=== PATIENT | male | born 1980 | race Caucasian/White ===

== ENCOUNTER 2017-06-12 16:24 | Emergency (ER) | payer OTHER ==
[~2017-06-12] VITALS: Ht 27.9 cm; Wt 88.5 kg
[~2017-06-12 16:24] MED LIST: ACYC-50 PO; ADV100/50 INH; ALB0.5 INH; ALBUDR INH; ALE10 PO; ALLO100T70 PO; CIPRO; FAM20 PO; FLUT1DIS27 IH; LISI20TA29 PO; MONT10TA22 PO; PAN40 PO; PHEN-710 PO; PRO-AIR IH; PRO25 PO; VITA1CAP48 PO; [UNRECOGNIZED DRUG - OTHER]
[2017-06-12] MEDS ORDERED: FLUT1BLS3 PO (16:40)
[2017-06-12] MEDS ORDERED: ALBU8.5H IH (16:41)
--- NOTE | 2017-06-12 16:52 | ER Report ---
History and Physical Time Seen By MD: 16:47 Hx. of Stated Complaint: PT WAS LIFTING HEAVY PILLARS AND HAD A PERIOD OF NUMBNESS, NOT BEING ABLE TO SPEAK FOR ABOUT HALF AN HOUR. PT HAS NAUSEA AND A SHARP SUBSTERNAL PAIN. HPI/ROS CHIEF COMPLAINT: Confusion HISTORY OF PRESENT ILLNESS: This is a 36-year-old male who presents to the emergency department for confusion. 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 Perhaps some epigastric discomfort. He said that this episode lasted about 30 minutes he also had some tingling to his fingers and toes, now he is has slight tingling in his left fingers. Patient also states that he did have some nausea during this episode, he is not able to vomit due to pyloric sphincter surgery, the nausea has since then resolved. Patient has no other complaints at this time no vomiting, diaphoresis, no chest pain, no headaches, no visual changes no shortness of breath. REVIEW OF SYSTEMS: Constitutional: No fever, no chills. Eyes: No discharge. ENT: No sore throat. Cardiovascular: No chest pain, no palpitations. Respiratory: No cough, no shortness of breath. Gastrointestinal: No abdominal pain, no vomiting. Genitourinary: No hematuria. Musculoskeletal: No back pain. Skin: No rashes. Neurological: As above. Allergies: Coded Allergies: Penicillins (Verified Allergy, Mild, 06/12/17) Home Meds Reported Medications Albuterol Sulfate 90 Mcg/Act (PROAIR HFA 90 MCG/ACT) 8.5 Gm Hfa.aer.ad, 1-2 PUFF IH 3-4XD, INHALER 06/12/17 Fluticasone/Vilanterol (Breo Ellipta 200-25 Mcg INH) 1 Each Blst.w.dev, 1 PUFF PO QDAY 06/12/17 Allopurinol (ALLOPURINOL) 100 Mg Tablet, 100 MG PO QDAY, #10 TAB TAKE 1 TABLET BY MOUTH EVERY DAY 07/09/14 Lisinopril (LISINOPRIL) 20 Mg Tablet, 20 MG PO QDAY, TAB 07/09/14 Vitamins A And D (Vitamin A And D) 1 Cap Capsule, 1 CAP PO 08/13/07 Acyclovir (Zovirax) 400 Mg Tablet, 400 MG PO BID 1 02/05/07 Discontinued Reported Medications Fluticasone/Salmeterol (Advair 100/50 Diskus) 1 Disk W/Dev Disk.w.dev, 1 DISK IH 08/13/07 Albuterol Sulfate (Albuterol Inh Conc) 2.5 Mg/0.5 Ml Nebu, 0 INH ONCE DILUTE BEFORE USING 08/13/07 Albuterol Sulfate (Albuterol Sulfate) 2.5 Mg/3 Ml Nebu, 2.5 MG INH BID 02/05/07 Past Medical/Surgical History Patient has a past medical and surgical history of hypertension, sinus problems , tonsillectomy, asthma, surgery as a child for pyloric stenosis, gout, right knee surgery at age 18, right hand surgery, 7 abdominal surgeries when he was 4 months old. Reviewed Nurses Notes: Yes Hx Smoking: No Constitutional Vital Sign - Last 24 Hours 06/12/17 06/12/17 06/12/17 06/12/17 16:35 16:36 16:39 16:54 Temp 97.6 Pulse 84 84 97 Resp 16 17 B/P (MAP) 137/97 (110) 137/97 Pulse Ox 92 94 O2 Delivery Room Air 06/12/17 06/12/17 06/12/17 06/12/17 17:00 17:09 17:24 17:25 Pulse 87 86 Resp 14 9 B/P (MAP) 147/96 (113) 132/86 (101) 119/84 (96) Pulse Ox 94 91 06/12/17 06/12/17 06/12/17 06/12/17 17:30 17:39 17:44 18:00 Pulse 96 ??? Resp 27 B/P (MAP) 134/89 (104) ???/??? (1665) Pulse Ox 91 06/12/17 06/12/17 06/12/17 06/12/17 18:14 18:28 18:30 18:44 Pulse ??? 77 Resp 24 B/P (MAP) 133/92 (106) 138/92 (107) Pulse Ox 93 06/12/17 06/12/17 06/12/17 06/12/17 19:30 19:35 20:00 20:05 Pulse 80 69 Resp 9 10 B/P (MAP) 126/88 (101) 131/91 (104) Pulse Ox 94 94 06/12/17 06/12/17 06/12/17 06/12/17 20:10 20:30 20:40 20:45 Pulse 75 77 Resp 11 10 8 B/P (MAP) 145/96 (112) Pulse Ox 94 94 92 Physical Exam General Appearance: The patient is alert, has no immediate need for airway protection and no signs of toxicity. Eyes: Pupils equal and round no pallor or injection. EOMs intact. ENT, Mouth: Mucous membranes are moist. Respiratory: There are no retractions, lungs are clear to auscultation. Cardiovascular: Regular rate and rhythm, no murmurs, clicks or rubs. No bruits Gastrointestinal: Abdomen is soft and non tender, no masses, bowel sounds normal, no bruits. Neurological: Alert and oriented 4. Moving all extremities. Following all commands. No focal neuro deficits. Cranial nerves II through XII intact, and symmetrical. Skin: Warm and dry, no rashes. Musculoskeletal: Neck is supple non tender. Extremities are nontender, nonswollen and have full range of motion. DIFFERENTIAL DIAGNOSIS: After history and physical exam differential diagnosis was considered for dizziness including but not limited to peripheral and central causes of vertigo, orthostatic causes including dehydration, and blood loss, thoracic aneurysm, aortic aneurysm, TIA, CVA. NIH Stroke Scale: 0 Level of consciousness:0 Alert Answers both questions correctly Performs both tasks correctly Best Gaze:0 Normal Visual:0 No visual loss Facial Palsy:0 Normal, symmetrical movements Motor Left Arm:0 No drift for 10 seconds Motor Right Arm:0 No drift for 10 seconds Motor Left Le No drift for 5 seconds Motor Right Le No drift for 5 seconds Limb Ataxia:0 Absent Sensory: 0 Normal, no sensory loss Best Language: 0 Normal, no aphasia Dysarthria:0 Normal Extinction and Inattention:0 No abnormality Medical Decision Making Data Points Result Diagram: 06/12/17 1745 06/12/17 1745 Laboratory Hematology Test 06/12/17 17:45 Red Blood Count 5.59 M/uL (4.00-5.60) Mean Corpuscular Volume 86.7 fL (80.0-96.0) Mean Corpuscular Hemoglobin 30.5 pg (26.0-33.0) Mean Corpuscular Hemoglobin Concent 35.1 g/dL (32.0-36.0) Red Cell Distribution Width 12.6 % (11.5-14.5) Mean Platelet Volume 7.9 fL (7.2-11.1) Neutrophils (%) (Auto) 86.3 % (39.4-72.5) Lymphocytes (%) (Auto) 8.2 % (17.6-49.6) Monocytes (%) (Auto) 5.0 % (4.1-12.4) Eosinophils (%) (Auto) 0.3 % (0.4-6.7) Basophils (%) (Auto) 0.2 % (0.3-1.4) Nucleated RBC Relative Count (auto) 0.1 /100WBC Neutrophils # (Auto) 13.9 K/uL (2.0-7.4) Lymphocytes # (Auto) 1.3 K/uL (1.3-3.6) Monocytes # (Auto) 0.8 K/uL (0.3-1.0) Eosinophils # (Auto) 0.0 K/uL (0.0-0.5) Basophils # (Auto) 0.0 K/uL (0.0-0.1) Nucleated RBC Absolute Count (auto) 0.01 K/uL D-Dimer Quantitative (PE/DVT) < 0.27 ug/ml (0-0.50) Sodium Level 139 mmol/L (137-145) Potassium Level 4.0 mmol/L (3.5-5.0) Chloride Level 102 mmol/L (98-107) Carbon Dioxide Level 22 mmol/L (22-30) Blood Urea Nitrogen 16 mg/dl (9-21) Creatinine 1.00 mg/dl (0.66-1.25) Glomerular Filtration Rate Calc > 60.0 Random Glucose 104 mg/dl (75-110) Calcium Level 9.8 mg/dl (8.4-10.2) Total Bilirubin 1.1 mg/dl (0.2-1.3) Aspartate Amino Transf (AST/SGOT) 48 U/L (0-35) Alanine Aminotransferase (ALT/SGPT) 53 U/L (0-56) Alkaline Phosphatase 95 U/L (0-126) Troponin I < 0.012 ng/ml Total Protein 7.7 gm/dl (6.3-8.2) Albumin 4.8 g/dl (3.5-5.0) Chemistry Test 06/12/17 17:45 White Blood Count 16.1 k/uL (4.5-11.0) Red Blood Count 5.59 M/uL (4.00-5.60) Hemoglobin 17.0 g/dL (14.0-18.0) Hematocrit 48.5 % (42.0-52.0) Mean Corpuscular Volume 86.7 fL (80.0-96.0) Mean Corpuscular Hemoglobin 30.5 pg (26.0-33.0) Mean Corpuscular Hemoglobin Concent 35.1 g/dL (32.0-36.0) Red Cell Distribution Width 12.6 % (11.5-14.5) Platelet Count 283 K/uL (150-450) Mean Platelet Volume 7.9 fL (7.2-11.1) Neutrophils (%) (Auto) 86.3 % (39.4-72.5) Lymphocytes (%) (Auto) 8.2 % (17.6-49.6) Monocytes (%) (Auto) 5.0 % (4.1-12.4) Eosinophils (%) (Auto) 0.3 % (0.4-6.7) Basophils (%) (Auto) 0.2 % (0.3-1.4) Nucleated RBC Relative Count (auto) 0.1 /100WBC Neutrophils # (Auto) 13.9 K/uL (2.0-7.4) Lymphocytes # (Auto) 1.3 K/uL (1.3-3.6) Monocytes # (Auto) 0.8 K/uL (0.3-1.0) Eosinophils # (Auto) 0.0 K/uL (0.0-0.5) Basophils # (Auto) 0.0 K/uL (0.0-0.1) Nucleated RBC Absolute Count (auto) 0.01 K/uL D-Dimer Quantitative (PE/DVT) < 0.27 ug/ml (0-0.50) Glomerular Filtration Rate Calc > 60.0 Calcium Level 9.8 mg/dl (8.4-10.2) Total Bilirubin 1.1 mg/dl (0.2-1.3) Aspartate Amino Transf (AST/SGOT) 48 U/L (0-35) Alanine Aminotransferase (ALT/SGPT) 53 U/L (0-56) Alkaline Phosphatase 95 U/L (0-126) Troponin I < 0.012 ng/ml Total Protein 7.7 gm/dl (6.3-8.2) Albumin 4.8 g/dl (3.5-5.0) Coagulation Test 06/12/17 17:45 D-Dimer Quantitative (PE/DVT) < 0.27 ug/ml EKG/Imaging EKG Interpretation 12 lead EKG: Rhythm: Normal sinus rhythm, 86 bpm. [place]: normal QRS: normal ST segments: No ST-T elevation or depression. No previous EKGs to compare to. Imaging PATIENT NAME: John Mcmahon : 1980 MR: [id number] V: [id number] EXAM DATE: [id number] ORDERING PHYSICIAN: FRANCIE NGUYEN TECHNOLOGIST: Location: [facility] - [place] Patient: John Mcmahon : 1980 Visit/Account:[id number] Date of Sevice: 06/12/2017 CT angiogram chest with contrast Indication: Confusion this morning, tingling in hands. Comparison: X-ray examination thoracic spine September 2014 Technique: Axial CT images are obtained through the chest after administration of 88 mL Isovue 370 IV contrast. Reformatted coronal and sagittal images were reviewed as well as coronal MIP images. One of the following dose optimization techniques was utilized in the performance of this exam: Automated exposure control; adjustment of the mA and/or kV according to the patient's size; or use of an iterative reconstruction technique. Specific details can be referenced in the facility's radiology CT exam operational policy. FINDINGS: Heart has a normal size and morphology. No evidence of pericardial effusion. There is a normal-appearing thoracic aorta and arch vessels. No evidence of dissection, intramural hematoma, aneurysm or other vascular abnormality. No evidence of periaortic or perivascular inflammatory change. Although not optimally timed, pulmonary arteries have a normal appearance. Pulmonary parenchyma is normal without infiltrate, consolidation, effusion, pneumothorax or underlying parenchymal disease. No debris is noted within the tracheobronchial system. Soft tissue windows reveal symmetric inferior portion of the thyroid. No evidence of adenopathy. Bony structures are unremarkable. Limited view of the upper abdomen is normal. Patient is status post Daniela procedure. IMPRESSION: 1. Unremarkable CT angiography of the chest without evidence of pathology. Report Dictated By: Juan Antonio Zelaya MD at 06/12/2017 7:34 PM Report E-Signed By: Juan Antonio Zelaya MD at 06/12/2017 7:42 PM [id number] PATIENT NAME: John Mcmahon : 1980 MR: [id number] V: [id number] EXAM DATE: ORDERING PHYSICIAN: FRANCIE NGUYEN TECHNOLOGIST: Location: [facility] [place] Patient: John Mcmahon : 1980 Visit/Account:[id number] Date of Sevice: 06/12/2017 CT Head without contrast Indication: Confusion. Comparison: None available Technique: Axial CT images were obtained through the brain from the skull base to the vertex without administration of IV contrast. Reformatted coronal and sagittal images were also obtained. One of the following dose optimization techniques was utilized in the performance of this exam: automated exposure control; adjustment of the mA and/ or kV according to the patient's size; or use of an iterative reconstruction technique. Specific details can be referenced in the facility's radiology CT exam operational policy. Findings: No evidence of mass, mass effect, or midline shift. No acute intracranial hemorrhage or acute territorial infarction. No extra axial fluid collection or hydrocephalus. No abnormal density. Britton/ white matter differentiation appears normal. Bony structures show no fractures or lesions. Mild leftward deviation nasal septum. The visualized paranasal sinuses and mastoid air cells are clear. IMPRESSION: 1. No acute intracranial abnormality. Report Dictated By: Homero Calderon at 06/12/2017 8:01 PM Report E-Signed By: Homero Calderon at 06/12/2017 8:04 PM [id number] ED Course/Re-evaluation Clinical Indication for ER IV: Hydration, IV Access ED Course The patient was admitted to room. History and physical were obtained. Differential diagnoses were considered. An IV was started. A 1 L lactated Ringer 's bolus was given. A CBC, CMP, Troponin, D-Dimer were obtained. Laboratory studies unremarkable, negative troponin, negative d-dimer. EKG showing normal sinus rhythm no acute ST findings. Negative head CT. Negative chest CT. I did review these results with the patient and his they were relieved with results. I also did explain to the patient that I don't have a clear answer as to why he had this lightheadedness and acute brief alteration in level of consciousness therefore I did recommend that he takes a daily 325 mg aspirin until he follows up with Dr. Espitia. I also told him he must follow-up with Dr. Espitia next week for possible carotid ultrasounds and echocardiogram. Patient had no other episodes while he was in the emergency department. Patient had no other questions or concerns at this time and was discharged home. Decision to Disposition Date: Jun 12, 2017 Decision to Disposition Time: 20:45 Depart Departure Latest Vital Signs Vital Signs Date Time Temp Pulse Resp B/P (MAP) Pulse Ox O2 Delivery O2 Flow Rate FiO2 06/12/17 20:45 77 8 92 06/12/17 20:30 145/96 (112) 06/12/17 16:36 97.6 Room Air Impression: Primary Impression: Lightheadedness Condition: Improved Disposition: HOME OR SELF-CARE Referrals: FRANCESCA MOREIRA MD Patient Instructions: Lightheadedness (ED) Additional Instructions: Drink plenty of fluids. Get plenty of rest. Take a 325mg aspirin until you follow up with your PCP. Neuromuscular with Dr. Mello next week for further evaluation of the lightheadedness, for consideration of carotid ultrasound as well as cardiac echo. Be sure to eat regular meals. May return to the ED for worsening symptoms or any other concerns you may have. [facility] [employer] consult with MD: Verbally MD Consult Note: Dr. Sotomayor. FRANCIE NGUYEN [employer] Jun 12, 2017 16:52
[2017-06-12] MEDS ORDERED: LR(*) 1000 ML BAG 1,000 ML IV ONE (17:10)
--- NOTE | 2017-06-12 17:30 | EKG ---
FACILITY: [facility] - [place] PATIENT NAME: NIXON PIKE : [id number] MR: [id number] V: [id number] EXAM DATE: ORDERING PHYSICIAN: FRANCIE NGUYEN TECHNOLOGIST: LUL Montero Reason : CONFUSION Blood Pressure : / mmHG Vent. Rate : 086 BPM Atrial Rate : 086 BPM P-R Int : 144 ms QRS Dur : 100 ms QT Int : 370 ms P-R-T Axes : 032 003 018 degrees QTc Int : 442 ms Normal sinus rhythm Possible Inferior infarct , age undetermined Abnormal ECG No previous ECGs available Confirmed by FRANCESCA CISSE ([id number]) on 06/13/2017 2:33:58 AM Referred By: FRANCIE Confirmed By:FRANCESCA CISSE
[2017-06-12 17:56] LABS: PLATELET COUNT, AUTOMATED 283 K/uL (150-450)
[2017-06-12] MEDS ORDERED: IOPAMIDOL 76% 75 ML INFUS BTL 75 ML ONE (18:57)
[2017-06-12] MEDS ORDERED: NS 0.9% 50 ML VIAL 100 ML ONE (18:57)
--- NOTE | 2017-06-12 19:47 | RADIOLOGY IMAGING REPORT ---
FACILITY: [facility] PATIENT NAME: John Mcmahon : 1980 MR: [id number] V: [id number] EXAM DATE: ORDERING PHYSICIAN: FRANCIE NGUYEN TECHNOLOGIST: Location: [facility] - [place] Patient: John Mcmahon : 1980 Visit/Account:[id number] Date of Sevice: 06/12/2017 CT angiogram chest with contrast Indication: Confusion this morning, tingling in hands. Comparison: X-ray examination thoracic spine September 2014 Technique: Axial CT images are obtained through the chest after administration of 88 mL Isovue 370 IV contrast. Reformatted coronal and sagittal images were reviewed as well as coronal MIP images. One of the following dose optimization techniques was utilized in the performance of this exam: Automated exposure control; adjustment of the mA and/or kV according to the patient's size; or use of an itera tive reconstruction technique. Specific details can be referenced in the facility's radiology CT ex am operational policy. FINDINGS: Heart has a normal size and morphology. No evidence of pericardial effusion. There is a normal-appe aring thoracic aorta and arch vessels. No evidence of dissection, intramural hematoma, aneurysm or o ther vascular abnormality. No evidence of periaortic or perivascular inflammatory change. Although not optimally timed, pulmonary arteries have a normal appearance. Pulmonary parenchyma is normal without infiltrate, consolidation, effusion, pneumothorax or underlyin g parenchymal disease. No debris is noted within the tracheobronchial system. Soft tissue windows r eveal symmetric inferior portion of the thyroid. No evidence of adenopathy. Bony structures are unremarkable. Limited view of the upper abdomen is normal. Patient is status po st Daniela procedure. IMPRESSION: 1. Unremarkable CT angiography of the chest without evidence of pathology. Report Dictated By: Juan Antonio Zelaya MD at 06/12/2017 7:34 PM Report E-Signed By: Juan Antonio Zelaya MD at 06/12/2017 7:42 PM [id number]
--- NOTE | 2017-06-12 20:08 | RADIOLOGY IMAGING REPORT ---
FACILITY: [facility] PATIENT NAME: John Mcmahon : 1980 MR: [id number] V: [id number] EXAM DATE: ORDERING PHYSICIAN: FRANCIE NGUYEN TECHNOLOGIST: Location: [facility] - [place] Patient: John Mcmahon : 1980 Visit/Account:[id number] Date of Sevice: 06/12/2017 CT Head without contrast Indication: Confusion. Comparison: None available Technique: Axial CT images were obtained through the brain from the skull base to the vertex without administration of IV contrast. Reformatted coronal and sagittal images were also obtained. One of the following dose optimization techniques was utilized in the performance of this exam: autom ated exposure control; adjustment of the mA and/or kV according to the patient's size; or use of an i terative reconstruction technique. Specific details can be referenced in the facility's radiology CT exam operational policy. Findings: No evidence of mass, mass effect, or midline shift. No acute intracranial hemorrhage or acute territorial infarction. No extra axial fluid collection or hydrocephalus. No abnormal density. Britton/white matter differentiat ion appears normal. Bony structures show no fractures or lesions. Mild leftward deviation nasal septum. The visualized paranasal sinuses and mastoid air cells are clear. IMPRESSION: 1. No acute intracranial abnormality. Report Dictated By: Homero Calderon at 06/12/2017 8:01 PM Report E-Signed By: Homero Calderon at 06/12/2017 8:04 PM [id number]
[2017-06-12 20:30] VITALS: BP 145/96
== END 2017-06-12 21:14 | disposition home or self-care (01) ==
LOC: ER 16:40
DX: R42 Dizziness and giddiness (principal); R94.31 Abnormal electrocardiogram [ECG] [EKG]
CPT/HCPCS: 70450; 71275; 84484; 85025; 85379; 93005; 96360; 96361; 99284; J7050; J7120; Q9967; 82040; 82247; 82310; 82374; 82435; 82565; 82947; 84075; 84132; 84155; 84295; 84450; 84460; 84520